=== PATIENT | female | born 1990 | race Caucasian/White ===

== ENCOUNTER 2017-02-18 20:46 | Emergency (ER) | payer MEDICAID, OTHER ==
[~2017-02-18] VITALS: Ht 152.4 cm; Wt 62.5 kg
[2017-02-18 20:51] VITALS: Ht 152.4 cm; Wt 62.5 kg
--- NOTE | 2017-02-18 21:25 | ERD ---
ER Documentation Chief Complaint Date/Time DATE: 02/18/17 TIME: 21:16 Chief Complaint 4 weeks , vaginal pain w/ iud intact HPI 26-year-old female presents here in emergency department for complaints of left pelvic pain started today, patient did test at home, was positive for , 4 tests were done, patient was seen with primary care doctor, patient has still the IUD in place, was to come here in the emergency department for further evaluation. Patient denies hematuria or dysuria. Patient denies any pelvic pain. Patient denies any fever or chills. Patient denies vaginal bleeding. ROS All systems reviewed and are negative except as per history of present illness. Medications Home Meds Active Scripts Acetaminophen* (Tylophen*) 500 Mg Capsule, 1 CAP PO Q6H Y for PAIN AND OR ELEVATED TEMP, #20 CAP Prov:MACK GANN INDUSTRIAL PAINTER 02/18/17 Cephalexin* (Keflex*) 500 Mg Capsule, 500 MG PO QID for 10 Days, CAP Prov:MACK GANN INDUSTRIAL PAINTER 02/18/17 Reported Medications [none] Unknown Strength No Conflict Check 02/18/17 Allergies Allergies: Coded Allergies: peanut (Verified Allergy, Unknown, 02/18/17) PMhx/Soc Medical and Surgical Hx: pt denies Surgical Hx History of Surgery: No Anesthesia Reaction: No Hx Neurological Disorder: No Hx Respiratory Disorders: Yes (TB) Hx Cardiac Disorders: No Hx Psychiatric Problems: No Hx Miscellaneous Medical Probl: No Hx Alcohol Use: No Hx Substance Use: No Hx Tobacco Use: No Smoking Status: Never smoker FmHx Family History: No coronary disease, No diabetes, No other Physical Exam Vitals Vital Signs Date Time Temp Pulse Resp B/P Pulse Ox O2 Delivery O2 Flow Rate FiO2 02/19/17 00:05 98.2 85 20 112/58 99 Room Air 02/18/17 20:51 98.3 112 20 129/63 100 Physical Exam GENERAL: The patient is well developed and appropriate for usual state of health, in no apparent distress. CHEST: Clear to auscultation bilaterally. There are no rales, wheezes or rhonchi. HEART: Regular rate and rhythm. No murmurs, clicks, rubs or gallops. No S3 or S4. ABDOMEN: Soft, nontender and nondistended. Good bowel sounds. No rebound or guarding. No gross peritonitis. No gross organomegaly or masses. No Badillo sign or McBurney point tenderness. BACK: No midline or flank tenderness. EXTREMITIES: Equal pulses bilaterally. There is no peripheral clubbing, cyanosis or edema. No focal swelling or erythema. Full range of motion. Grossly neurovascularly intact. NEURO: Alert and oriented. Cranial nerves 2-12 intact. Motor strength in all 4 extremities with 5/5 strength. Sensation grossly intact. Normal speech and gait. SKIN: There is no apparent rash or petechia. The skin is warm and dry. HEMATOLOGIC AND LYMPHATIC: There is no evidence of excessive bruising or lymphedema. No gross cervical, axillary, or inguinal lymphadenopathy. Result Diagram: 02/18/172149 Results 24 hrs Laboratory Tests Test 02/18/17 21:50 White Blood Count 10.410^3/ul Red Blood Count 3.5410^6/ul Hemoglobin 10.8g/dl Hematocrit 34.3% Mean Corpuscular Volume 96.9fl Mean Corpuscular Hemoglobin 30.5pg Mean Corpuscular Hemoglobin Concent 31.5g/dl Red Cell Distribution Width 13.3% Platelet Count 97474^3/UL Mean Platelet Volume 8.4fl Neutrophils % 64.7% Lymphocytes % 23.9% Monocytes % 9.2% Eosinophils % 1.7% Basophils % 0.2% Nucleated Red Blood Cells % 0.0/100WBC Neutrophils # 6.810^3/ul Lymphocytes # 2.510^3/ul Monocytes # 1.010^3/ul Eosinophils # 0.210^3/ul Basophils # 0.010^3/ul Nucleated Red Blood Cells # 0.010^3/ul Urine Color LT. YELLOW Urine Clarity SLIGHTLY CLOUDY Urine pH 6.5 Urine Specific [place] 1.010 Urine Ketones NEGATIVE Urine Nitrite POSITIVE Urine Bilirubin NEGATIVE Urine Urobilinogen 2.0 E.U./dL Urine Leukocyte Esterase NEGATIVE Urine Microscopic RBC NONE SEEN/HPF Urine Microscopic WBC 0-2/HPF Urine Squamous Epithelial Cells MODERATE Urine Amorphous Urates FEW Urine Bacteria MANY Urine Hemoglobin NEGATIVE Urine Glucose NEGATIVE% Urine Total Protein NEGATIVE Beta HCG, Quantitative 61888.0mIU/ml PROCEDURE: US OB. CLINICAL INDICATION: Pelvic pain TECHNIQUE: Transabdominal and transvaginal views of the pelvis are available for review. COMPARISON: No prior studies are available for comparison. FINDINGS: There is a single intrauterine gestation with the crown-rump length measuring 1.2 cm, corresponding to a gestational age of 7 weeks and 2 days. The heart rate is noted at 144 bpm. There are small hypoechoic areas adjacent to the gestational sac, consistent with subchorionic hemorrhage. There is an IUD seen in the lower cervical canal. The ovaries are normal in size and echogenicity. Normal Doppler flow is identified in both ovaries. The right ovary measures 2.9 x 1.6 x 1.5 cm. The left ovary measures 3.7 x 1.8 x 1.9 cm. There is a small hemorrhagic cyst in the left ovary, suspicious for a corpus luteum cyst. There is a trace amount of free fluid in the cul-de-sac. RPTAT: AA IMPRESSION: Single live intrauterine with an estimated gestational age of 7 weeks and 2 days, based on ultrasound measurements. YARED based on ultrasound measurements is 10/05/17 Small areas of subchorionic hemorrhage are noted. IUD within the lower cervical canal. Follow-up is needed. .Roger Bailey MD, MD Date Time Electronically viewed and signed by .Roger Bailey MD, MD on 02/18/2017 21: 46 .S/ CC: MACK GANN NP, Dr, OB laborist was consulted regarding this case, she came and evaluated the patient, after signing consent, she was able to remove the IUD without any difficulty, patient tolerated procedure well, please see her dictation for procedure note. Procedures/MDM Medical Decision Making: Patient's pain nonspecific at this time, patient is a viable at this time, IUD was in place and was removed without any difficulty. Patient also has subchorionic bleed but is Rh+, does not need gross exam at this time. There is low suspicion for abdominal emergencies at this time. Patients abdominal exam is normal at this time. Patients radiology exam does not show any abdominal emergencies at this time. There is low suspicion for appendicitis, cholecystitis, abdominal aortic aneurysms or peritonitis at this time. There is low suspicion for sepsis. Patient appears well and is hemodynamically stable. Patient is nitrite positive negative leukocyte but will still be treated for urinary tract infection. His pelvic pain most that he can be from this. No symptoms of pyelonephritis. Disposition: Home. Condition: Stable Prescription Keflex, Tylenol Instructions: Patient is advised to take medications as prescribed. Patient is advised to rest, increase fluid intake and do brat diet for next 1-2 days and progress as tolerated. Patient is advised that if symptoms are worse, severe abdominal pain, uncontrolled vomiting, high fever, severe flank pain, worst signs and symptoms, to return to the emergency department immediately. Otherwise, patient can follow up with OB doctor in 2-3 days Departure Diagnosis: Primary Impression: Encounter for IUD removal Additional Impressions: Intrauterine UTI (urinary tract infection) Urinary tract infection type: acute cystitis Hematuria presence: without hematuria Qualified Code: N30.00 - Acute cystitis without hematuria Subchorionic bleed Fetus number: single or unspecified fetus Trimester: first trimester Qualified Code: O41.8X10 - Subchorionic bleed, first trimester, not applicable or unspecified fetus Condition: Stable Patient Instructions: Control: IUD (Intrauterine Device), Understanding Urinary Tract Infections (UTIs) Additional Instructions: Patient is advised to take medications as prescribed. Patient is advised to rest , increase fluid intake and do brat diet for next 1-2 days and progress as tolerated. Patient is advised that if symptoms are worse, severe abdominal pain , uncontrolled vomiting, high fever, severe flank pain, worst signs and symptoms , to return to the emergency department immediately. Otherwise, patient can follow up with OB doctor in 2-3 days MACK GANN NP Feb 18, 2017 21:25
--- NOTE | 2017-02-18 21:47 | RADRPT ---
PROCEDURE: US OB. CLINICAL INDICATION: Pelvic pain TECHNIQUE: Transabdominal and transvaginal views of the pelvis are available for review. COMPARISON: No prior studies are available for comparison. FINDINGS: There is a single intrauterine gestation with the crown-rump length measuring 1.2 cm, corresponding to a gestational age of 7 weeks and 2 days. The heart rate is noted at 144 bpm. There are small hypoechoic areas adjacent to the gestational sac, consistent with subchorionic hemor rhage. There is an IUD seen in the lower cervical canal. The ovaries are normal in size and echogenicity. Normal Doppler flow is identified in both ovaries. The right ovary measures 2.9 x 1.6 x 1.5 cm. The left ovary measures 3.7 x 1.8 x 1.9 cm. There is a small hemorrhagic cyst in the left ovary, carlos alberto picious for a corpus luteum cyst. There is a trace amount of free fluid in the cul-de-sac. RPTAT: AA IMPRESSION: Single live intrauterine with an estimated gestational age of 7 weeks and 2 days, based on ultrasound measurements. YARED based on ultrasound measurements is 10/05/17 Small areas of subchorionic hemorrhage are noted. IUD within the lower cervical canal. Follow-up is needed. .Roger Bailey MD, MD Date Time Electronically viewed and signed by .Roger Bailey MD, on 02/18/2017 21:46 .S/
[2017-02-18 22:07] LABS: ADD SCAN DIFF NO
[2017-02-18 22:12] LABS: BASOPHILS % 0.2 % (0.0-2.0); EOSINOPHILS % 1.7 % (0.0-7.0); HEMATOCRIT 34.3 % (37.0-47.0); HEMOGLOBIN 10.8 g/dl (12.0-16.0); LYMPHOCYTES % 23.9 % (15.0-51.0); MEAN CORPUSCULAR HEMOGLOBIN 30.5 pg (29.0-33.0); MEAN CORPUSCULAR HGB CONC 31.5 g/dl (32.0-37.0); MEAN CORPUSCULAR VOLUME 96.9 fl (82.0-101.0); MEAN PLATELET VOLUME 8.4 fl (7.4-10.4); MONOCYTES % 9.2 % (0.0-11.0); NEUTROPHILS % 64.7 % (39.0-77.0); PLATELET COUNT 355 10^3/UL (140-415); RED BLOOD COUNT 3.54 10^6/ul (4.20-5.40); RED CELL DISTRIBUTION WIDTH 13.3 % (11.5-14.5); WHITE BLOOD COUNT 10.4 10^3/ul (4.8-10.8)
[2017-02-18 22:13] LABS: EOSINOPHILS # 0.2 10^3/ul (0.0-0.5); LYMPHOCYTES # 2.5 10^3/ul (0.8-2.9); NEUTROPHIL # 6.8 10^3/ul (1.6-7.5)
[2017-02-18 22:27] LABS: ADD UMIC YES; URINE BILIRUBIN (Dip) NEGATIVE (NEGATIVE); URINE BLOOD (Dip) NEGATIVE (NEGATIVE); URINE COLOR LT. YELLOW (YELLOW); URINE GLUCOSE (Dip) NEGATIVE (NEGATIVE); URINE KETONES (Dip) NEGATIVE (NEGATIVE); URINE LEUKOCYTE ESTERASE (Dip) NEGATIVE (NEGATIVE); URINE NITRITE (Dip) POSITIVE (NEGATIVE); URINE TOTAL PROTEIN (Dip) NEGATIVE (NEGATIVE); URINE UROBILINOGEN (Dip) 2.0 E.U./dL (0.1-1.0)
[2017-02-18 23:25] LABS: BACTERIA,URINE MANY; SQUAMOUS EPITHELIAL CELL,UR MODERATE; URINE RBCS NONE SEEN /HPF (0)
--- NOTE | 2017-02-18 23:34 | CONS ---
Date/Time of Note Date/Time of Note DATE: 02/18/17 TIME: 23:22 Assessment/Plan Assessment/Plan Chief Complaint/Hosp Course IUP at 7 weeks by today's ultrasound Subchorionic hemorrhage with IUD. Attempted removal in the clinic today. Was not able to completely remove. I have discussed with the patient about the risk of SAB as well as risk of infection with IUD and . Currently due to presence of subchorionic hemorrhage there is risk of miscarriage at least 50% or more. However removing the IUD also may increase potentially risk of miscarriage as well. Currently IUD inside the endocervical canal and below the gestational sac. I discussed with the patient a trial of removal in the emergency room understanding above risks, versus accepting the risk of miscarriage as well as infection Patient desired to proceed with removal After signing informed consent and placing the speculum inside the vagina IUD stem that was already half way outside of the endocervix gently grasped using ring forceps and with gentle traction it was completely removed. No complication occurred. No bleeding after this procedure. Exam completely benign. Patient reports improvement of her cramps. Next Patient was given strict precaution to present to emergency room if she has any increased bleeding, pain, fever chills abnormal bleeding abnormal discharge or any other concerns. She has already have a prescription for Flagyl was given by her clinic to take Recommended to have a follow-up with her OB office next week or sooner as needed any other problems ABO Rh pending. I have discussed with SHERIFFS OFFICER who originally saw this patient to follow-up with Rh and if that is positive patient can be discharged home with above instruction Problems: Consultation Date/Type/Reason Admit Date/Time Date of Consultation: Feb 18, 2017 Type of Consultation: MARKING STITCHER Reason for Consultation with IUD Hx of Present Illness 26-year-old with at 7 weeks by ultrasound today, patient was sent from clinic today after attempts for removal of retained IUD in the current . IUD could not completely be removed and patient was sent to emergency room. Patient reports her LMP to be December 28, 2016. She had be using ParaGard IUD for the last 4 years. She reports she had been feeling nausea vomiting breast tenderness and cramping and after she missed her cycles she was tested positive for . Subsequently she was seen in the outside clinic. attempt for removal of IUD was done today however due to inability to remove completely the IUD patient was sent to emergency room. Patient reports that current was unplanned. She had a OB ultrasound here at the emergency room that showed 7 weeks with IUD inside the endocervical canal as well as some subchorionic hemorrhage around the gestational sac. There is normal cardiac activity. Patient currently complaining of cramps in both lower abdomen. She reports her blood type is Rh+. Subjective hx not possible: other (Patient cooperative) Constitutional: no complaints Eyes: no complaints ENT: no complaints Respiratory: no complaints Cardiovascular: no complaints Gastrointestinal: other (Cramping abdominal pain in both lower abdomen), pain Genitourinary: other (Lower abdominal cramp and pain) Musculoskeletal: no complaints Skin: no complaints Neurologic: no complaints Endocrine: no complaints Lymphatic: no complaints Psychological: no complaints Immunologic: no complaints Past Medical History 1. Positive skin tuberculosis test. She was given oral treatment. She denied any known diagnosis of tuberculosis. Patient reports that she has been taking 1 pill every day 2 asthma. Currently on medication, inhaler Past FRONT OFFICE REPRESENTATIVE history: , status post 1 LMP: December 28, 2016 Denies any prior history of gynecology problem including ovarian cyst or fibroid or abnormal Pap smear in the past Denies any complication in her prior . Has been using ParaGard IUD for the last 4 years for contraception. Past Surgical History Past Surgical Hx: no surgical history Social History Mother with heart disease Sister with stroke Alcohol Use: none Smoking Status: Never smoker Drug Use: none Other Social History Patient works in recreational park Exam/Review of Systems Vital Signs Vitals Vital Signs Date Time Temp Pulse Resp B/P Pulse Ox O2 Delivery O2 Flow Rate FiO2 02/18/17 20:51 98.3 112 20 129/63 100 Exam Constitutional: alert, oriented, well developed Psych: nl mood/affect, no complaints Head: atraumatic, normocephalic Eyes: EOMI, nl conjunctiva, nl lids ENMT: nl external ears & nose, nl lips & teeth, nl nasal mucosa & septum Neck: non-tender, supple Respiratory: clear to auscultation, normal air movement Cardiovascular: nl pulses, regular rate and rhythm Gastrointestinal: nl liver, spleen, non-tender, soft Genitourinary - Female: other (Speculum examination: Cervix seen normal without any lesion. IUD stem seen half way through the cervix and half of the IUD stem seen outside of the cervical canal hanging from external cervical office. The arms appears to be inside the cervical canal. No evidence of blood in the vault.), uterus (Uterus about 8-9 cm. No tenderness, no rebound tenderness, no fullness in adnexa.) Musculoskeletal: nl extremities to inspection, nl gait and stance Extremities: normal pulses Neurological: ASSISTANT CURATOR II-XII intact, nl mental status, nl speech Skin: nl turgor, rash or lesions Results Result Diagram: 02/18/172149 Results 24 hrs Laboratory Tests Test 02/18/17 21:50 White Blood Count 10.4 Red Blood Count 3.54 L Hemoglobin 10.8 L Hematocrit 34.3 L Mean Corpuscular Volume 96.9 Mean Corpuscular Hemoglobin 30.5 Mean Corpuscular Hemoglobin Concent 31.5 L Red Cell Distribution Width 13.3 Platelet Count 355 Mean Platelet Volume 8.4 Neutrophils % 64.7 Lymphocytes % 23.9 Monocytes % 9.2 Eosinophils % 1.7 Basophils % 0.2 Nucleated Red Blood Cells % 0.0 Neutrophils # 6.8 Lymphocytes # 2.5 Monocytes # 1.0 H Eosinophils # 0.2 Basophils # 0.0 Nucleated Red Blood Cells # 0.0 Urine Color LT. YELLOW Urine Clarity SLIGHTLY CLOUDY Urine pH 6.5 Urine Specific [place] 1.010 Urine Ketones NEGATIVE Urine Nitrite POSITIVE H Urine Bilirubin NEGATIVE Urine Urobilinogen 2.0 E.U./dL H Urine Leukocyte Esterase NEGATIVE Urine Microscopic RBC Pending Urine Microscopic WBC Pending Urine Hemoglobin NEGATIVE Urine Glucose NEGATIVE Urine Total Protein NEGATIVE Beta HCG, Quantitative 25899.0 YASMEEN BIANCHI MD Feb 18, 2017 23:34
[2017-02-18] MEDS ORDERED: CEPH-443 PO (23:46)
[2017-02-18] MEDS ORDERED: ACET500C5 PO (23:46)
[2017-02-19 00:05] VITALS: BP 112/58; PULSE 85; RESP 20; TEMP 98.2
== END 2017-02-19 00:06 | disposition home or self-care (01) ==
LOC: FTE 20:46
DX: O23.11 Infections of bladder in pregnancy, first trimester (principal); O41.8X10 Other specified disorders of amniotic fluid and membranes, first trimester, not applicable or unspecified; R10.2 Pelvic and perineal pain; Z30.432 Encounter for removal of intrauterine contraceptive device
CPT/HCPCS: 36415; 76801; 76817; 81001; 81003; 84702; 85025; 86900; 86901